=== PATIENT | male | born 1940 | race Caucasian/White ===

== ENCOUNTER 2019-03-24 09:57 | Outpatient (CLI) | payer OTHER ==
--- NOTE | 2019-03-24 10:23 | RAD ---
XR Chest Pa Lat STANDARD HISTORY: Occupational exposure to asbestos COMPARISON: 04/14/2018 FINDINGS: The heart size is normal. Changes of median sternotomy are again seen. The lungs are well e xpanded without focal areas of consolidation, pneumothorax or pleural effusions. No definite calcified pleural plaques are seen. IMPRESSION: No radiographic evidence of acute cardiopulmonary process.
== END 2019-03-24 09:58 | disposition home or self-care (01) ==
LOC: MADRAD 09:57
PROVIDERS: ATTEND Internal Medicine
DX: J61 Pneumoconiosis due to asbestos and other mineral fibers (principal)
CPT/HCPCS: 71046

== ENCOUNTER 2021-10-14 14:14 | Emergency (ER) | payer MEDICARE ==
[2021-10-14] MEDS ORDERED: Ipratropium Bromide 2.5 ml Neb ONE (15:41)
[2021-10-14] MEDS ORDERED: methylPREDNISolone Sod Succ/PF 125 MG/2 ML VIAL ONE (15:41)
[2021-10-14] MEDS ORDERED: Sodium Chloride 0.9% 250 ML 250 ML ONE (15:41)
[2021-10-14] MEDS ORDERED: Albuterol Sulfate 2.5 mg/0.5 ml Neb ONE (15:41)
[2021-10-14] MEDS ORDERED: Azithromycin 500 MG VIAL ONE (15:41)
[2021-10-14 15:55] LABS: ALT (SGPT) 11 U/L (8-55); AST (SGOT) 20 U/L (5-34); Albumin 3.7 g/dL (3.4-4.8); Alkaline Phosphatase 137 U/L (40-110); Anion Gap 17 mmol/L (10-20); BUN (Urea Nitrogen) 20 mg/dL (8.4-25.7); Bilirubin, Total 1.2 mg/dL (0.2-1.2); Calc. Creatinine Clearance 0 mL/min (70-130); Calcium 8.8 mg/dL (7.8-10.44); Carbon Dioxide 22 mmol/L (23-31); Chloride 112 mmol/L (98-107); Globulin 3.3 g/dL (2.4-3.5); Glucose 166 mg/dL (83-110); Potassium 4.3 mmol/L (3.5-5.1); Sodium 147 mmol/L (136-145)
[2021-10-14 15:58] LABS: #Basophils 0.1 thou/uL (0.0-0.2); #Eosinphils 0.3 thou/uL (0.0-0.7); #Lymphocytes 1.3 thou/uL (1.20-3.40); #Monocytes 0.6 thou/uL (0.11-0.59); #Neutrophils 5.3 thou/uL (1.40-6.50); %Basophils 0.8 % (0.0-1.0); %Eosinophils 3.4 % (0.0-10.0); %Lymphocytes 17.3 % (21.0-51.0); %Monocytes 7.7 % (0.0-10.0); %Neutrophils 70.8 % (42.0-75.0); Anisocytosis SLIGHT = 6-15 cells (100X) (0-5/hpf); Hemoglobin 11.2 g/dL (14.0-18.0); Hypochromia SLIGHT = 6-15 cells (100X) (0-5/hpf); MDiff Complete? YES; Mean Corpuscular HGB CONC 29.6 g/dL (32.0-36.0); Mean Corpuscular Hemoglobin 25.4 pg (27.0-31.0); Mean Corpuscular Volume 85.7 fL (78.0-98.0); Mean Platelet Volume 8.9 fL (7.4-10.4); Microcytosis SLIGHT = 6-15 cells (100X) (0-5/hpf); Ovalocytes SLIGHT = 2-5 cells (100X) (0-1/hpf); Platelet Count 240 thou/uL (130-400); Platelet Morphology Comment Appears Adequate; RBC Distribution Width 27.5 % (11.5-14.5); White Blood Cell (WBC) Count 7.5 thou/uL (4.8-10.8)
[2021-10-14] MEDS ORDERED: Albuterol 200 PUFF (6.7GM INHALER) ONE (17:38)
== END 2021-10-14 17:54 | disposition home or self-care (01) ==
LOC: MADERS 14:14
DX: J44.1 Chronic obstructive pulmonary disease with (acute) exacerbation (principal); I48.91 Unspecified atrial fibrillation; I50.9 Heart failure, unspecified; E78.5 Hyperlipidemia, unspecified; I11.0 Hypertensive heart disease with heart failure; K21.9 Gastro-esophageal reflux disease without esophagitis; J44.9 Chronic obstructive pulmonary disease, unspecified; E11.9 Type 2 diabetes mellitus without complications; Z87.891 Personal history of nicotine dependence
CPT/HCPCS: 71045; 80053; 83880; 84484; 85025; 96365; 96375; J0456; J2930; J7050; J7611; J7620

== ENCOUNTER 2022-02-25 14:55 | Inpatient (IN) | payer MEDICARE ==
[2022-02-25 17:23] VITALS: BMI 28.8
[2022-02-25] MEDS ORDERED: LEVOFLOXACIN 750 MG PO SCH (17:45)
[2022-02-25] MEDS ORDERED: Artificial Tear Sol 15 ML BOT EA EYE PRN (17:48)
[2022-02-25] MEDS ORDERED: Dextrose 5% in Water 1,000 ML IV PRN (18:30)
[2022-02-25] MEDS ORDERED: Dextrose 50% Abboject 50 ML SYRINGE IVP PRN (18:30)
[2022-02-25] MEDS: Glimepiride 2 MG TAB PO SCH (20:48)
[2022-02-25] MEDS: Mometasone/Formoterol 200/5 60 PUFF INH SCH (20:48)
[2022-02-25] MEDS: Simvastatin 5 MG TAB PO SCH (20:49)
[2022-02-26] MEDS: Levothyroxine Sodium 25 MCG TAB PO SCH (05:15)
[2022-02-26] MEDS ORDERED: Enoxaparin Sodium 40 MG/0.4 ML SYRINGE SC SCH (09:00)
[2022-02-26] MEDS: Mometasone/Formoterol 200/5 60 PUFF INH SCH ×2 (09:27→21:18)
[2022-02-26] MEDS: predniSONE 10 MG TAB PO SCH (09:28)
[2022-02-26] MEDS: Glimepiride 2 MG TAB PO SCH ×2 (09:28→21:16)
[2022-02-26] MEDS: Enoxaparin Sodium 30 MG/0.3 ML SYRINGE SC SCH (09:28)
[2022-02-26] MEDS: Aspirin 81 mg Enteric Coated Tablet PO SCH (09:29)
[2022-02-26] MEDS: Furosemide 40 MG TAB PO SCH (09:29)
[2022-02-26] MEDS: Cholecalciferol 1,000 UNITS (25 MCG) TAB PO SCH (09:29)
[2022-02-26] MEDS: Simvastatin 5 MG TAB PO SCH (21:18)
[2022-02-26] MEDS: HumaLOG 300 UNITS/3 ML VIAL SC PRN (21:20)
[2022-02-27 05:56] LABS: #Lymphocytes 0.9 thou/uL (1.20-3.40); #Monocytes 0.8 thou/uL (0.11-0.59); #Neutrophils 7.9 thou/uL (1.40-6.50); %Basophils 0.2 % (0.0-1.0); %Neutrophils 82.8 % (42.0-75.0); Anisocytosis SLIGHT = 6-15 cells (100X) (0-5/hpf); Hemoglobin 10.7 g/dL (14.0-18.0); MDiff Complete? YES; Mean Corpuscular HGB CONC 30.6 g/dL (32.0-36.0); Mean Corpuscular Hemoglobin 24.3 pg (27.0-31.0); Mean Corpuscular Volume 79.5 fL (78.0-98.0); Mean Platelet Volume 7.6 fL (7.4-10.4); Ovalocytes SLIGHT = 2-5 cells (100X) (0-1/hpf); Platelet Count 248 thou/uL (130-400); Platelet Morphology Comment Appears Adequate; RBC Distribution Width 15.7 % (11.5-14.5); White Blood Cell (WBC) Count 9.6 thou/uL (4.8-10.8)
[2022-02-27 06:06] LABS: ALT (SGPT) 17 U/L (8-55); AST (SGOT) 21 U/L (5-34); Albumin 3.7 g/dL (3.4-4.8); Alkaline Phosphatase 97 U/L (40-110); Anion Gap 17 mmol/L (10-20); BUN (Urea Nitrogen) 52 mg/dL (8.4-25.7); Bilirubin, Total 1.1 mg/dL (0.2-1.2); Calc. Creatinine Clearance 35 mL/min (70-130); Calcium 8.9 mg/dL (7.8-10.44); Carbon Dioxide 25 mmol/L (23-31); Chloride 104 mmol/L (98-107); Estimated GFR 37; Globulin 3.3 g/dL (2.4-3.5); Glucose 141 mg/dL (83-110); Potassium 3.9 mmol/L (3.5-5.1); Sodium 142 mmol/L (136-145)
[2022-02-27] MEDS: Levothyroxine Sodium 25 MCG TAB PO SCH (06:09)
[2022-02-27] MEDS: Mometasone/Formoterol 200/5 60 PUFF INH SCH ×2 (08:37→20:38)
[2022-02-27] MEDS: Cholecalciferol 1,000 UNITS (25 MCG) TAB PO SCH (08:39)
[2022-02-27] MEDS: Aspirin 81 mg Enteric Coated Tablet PO SCH (08:39)
[2022-02-27] MEDS: predniSONE 10 MG TAB PO SCH (08:39)
[2022-02-27] MEDS: Glimepiride 2 MG TAB PO SCH ×2 (08:41→20:34)
[2022-02-27] MEDS: Enoxaparin Sodium 30 MG/0.3 ML SYRINGE SC SCH (08:44)
[2022-02-27] MEDS: Furosemide 40 MG TAB PO SCH (08:44)
[2022-02-27] MEDS: HumaLOG 300 UNITS/3 ML VIAL SC PRN (17:52)
[2022-02-27] MEDS: Simvastatin 5 MG TAB PO SCH (20:34)
[2022-02-28] MEDS: Levothyroxine Sodium 25 MCG TAB PO SCH (05:16)
[2022-02-28] MEDS: Cholecalciferol 1,000 UNITS (25 MCG) TAB PO SCH (08:35)
[2022-02-28] MEDS: Glimepiride 2 MG TAB PO SCH (08:35)
[2022-02-28] MEDS: predniSONE 10 MG TAB PO SCH (08:35)
[2022-02-28] MEDS: Enoxaparin Sodium 30 MG/0.3 ML SYRINGE SC SCH (08:35)
[2022-02-28] MEDS: Furosemide 40 MG TAB PO SCH (08:36)
[2022-02-28] MEDS: Aspirin 81 mg Enteric Coated Tablet PO SCH (08:36)
[2022-02-28] MEDS: Mometasone/Formoterol 200/5 60 PUFF INH SCH ×2 (08:37→20:28)
[2022-02-28] MEDS: HumaLOG 300 UNITS/3 ML VIAL SC PRN ×2 (18:26→22:18)
[2022-02-28] MEDS: Hydrocortisone Acetate 25 MG Suppository PR PRN (20:25)
[2022-02-28] MEDS: Simvastatin 5 MG TAB PO SCH (20:27)
[2022-03-01] MEDS: Levothyroxine Sodium 25 MCG TAB PO SCH (05:32)
[2022-03-01] MEDS: predniSONE 10 MG TAB PO SCH (08:02)
[2022-03-01] MEDS: Aspirin 81 mg Enteric Coated Tablet PO SCH (08:03)
[2022-03-01] MEDS: Furosemide 40 MG TAB PO SCH (08:03)
[2022-03-01] MEDS: Glimepiride 2 MG TAB PO SCH (08:04)
[2022-03-01] MEDS: Mometasone/Formoterol 200/5 60 PUFF INH SCH ×2 (08:04→20:03)
[2022-03-01] MEDS: Enoxaparin Sodium 30 MG/0.3 ML SYRINGE SC SCH (08:04)
[2022-03-01] MEDS: Cholecalciferol 1,000 UNITS (25 MCG) TAB PO SCH (08:04)
[2022-03-01] MEDS: Simvastatin 5 MG TAB PO SCH (20:02)
[2022-03-01] MEDS: Hydrocortisone Acetate 25 MG Suppository PR PRN (20:18)
[2022-03-01] MEDS: HumaLOG 300 UNITS/3 ML VIAL SC PRN (21:55)
[2022-03-02] MEDS: Levothyroxine Sodium 25 MCG TAB PO SCH (05:50)
[2022-03-02] MEDS: Aspirin 81 mg Enteric Coated Tablet PO SCH (08:44)
[2022-03-02] MEDS: predniSONE 10 MG TAB PO SCH (08:45)
[2022-03-02] MEDS: Furosemide 40 MG TAB PO SCH (08:45)
[2022-03-02] MEDS: Glimepiride 2 MG TAB PO SCH (08:45)
[2022-03-02] MEDS: Cholecalciferol 1,000 UNITS (25 MCG) TAB PO SCH (08:45)
[2022-03-02] MEDS: Enoxaparin Sodium 30 MG/0.3 ML SYRINGE SC SCH (08:46)
[2022-03-02] MEDS: Mometasone/Formoterol 200/5 60 PUFF INH SCH ×2 (08:48→20:17)
[2022-03-02] MEDS: HumaLOG 300 UNITS/3 ML VIAL SC PRN ×2 (17:12→21:59)
[2022-03-02] MEDS: Simvastatin 5 MG TAB PO SCH (20:16)
[2022-03-02] MEDS: Hydrocortisone Acetate 25 MG Suppository PR PRN (20:17)
[2022-03-03] MEDS: Levothyroxine Sodium 25 MCG TAB PO SCH (04:43)
[2022-03-03 07:04] VITALS: BP 120/72; TEMP 98.3
[2022-03-03] MEDS: Cholecalciferol 1,000 UNITS (25 MCG) TAB PO SCH (08:48)
[2022-03-03] MEDS: Enoxaparin Sodium 30 MG/0.3 ML SYRINGE SC SCH (08:49)
[2022-03-03] MEDS: Aspirin 81 mg Enteric Coated Tablet PO SCH (08:49)
[2022-03-03] MEDS: Furosemide 40 MG TAB PO SCH (08:49)
[2022-03-03] MEDS: Glimepiride 2 MG TAB PO SCH (08:49)
[2022-03-03] MEDS: Mometasone/Formoterol 200/5 60 PUFF INH SCH (08:50)
== END 2022-03-03 16:38 | disposition home health service (06) | DRG 948 ==
LOC: MADMS 17:13
PROVIDERS: ADMIT Family Medicine; ATTEND Family Medicine
DX: R53.81 Other malaise (principal); I50.32 Chronic diastolic (congestive) heart failure; I48.19 Other persistent atrial fibrillation; I13.0 Hypertensive heart and chronic kidney disease with heart failure and stage 1 through stage 4 chronic kidney disease, or unspecified chronic kidney disease; N17.9 Acute kidney failure, unspecified; E03.9 Hypothyroidism, unspecified; E11.22 Type 2 diabetes mellitus with diabetic chronic kidney disease; J44.9 Chronic obstructive pulmonary disease, unspecified; R26.81 Unsteadiness on feet; Z20.822 Contact with and (suspected) exposure to COVID-19; N18.31 Chronic kidney disease, stage 3a; E11.65 Type 2 diabetes mellitus with hyperglycemia; E11.649 Type 2 diabetes mellitus with hypoglycemia without coma; Z98.41 Cataract extraction status, right eye; Z79.82 Long term (current) use of aspirin; Z79.899 Other long term (current) drug therapy; Z88.8 Allergy status to other drugs, medicaments and biological substances; Z95.5 Presence of coronary angioplasty implant and graft; Z87.891 Personal history of nicotine dependence; Z79.51 Long term (current) use of inhaled steroids
CPT/HCPCS: 36415; 36416; 80053; 85025; 94664; J1650; J1815; J7512; U0003; U0005

== ENCOUNTER 2022-03-30 11:20 | Emergency (ER) | payer MEDICARE ==
[2022-03-30] MEDS ORDERED: Sodium Chloride 0.9% 1,000 ML ONE (13:11)
[2022-03-30 13:18] LABS: Bilirubin Negative (Negative); Blood, Urine Negative (Negative); Glucose, Urine (Dipstick) Negative (Negative); Ketone, Urine Negative (Negative); Leukocyte Negative (Negative); Nitrite Negative (Negative); Protein, Urine (Dipstick) 30 mg/dL (Neg-Trace)
[2022-03-30 13:25] LABS: Bacteria/HPF Rare-Few HPF (None Seen); Clarity Hazy (Clear); RBC/HPF 0-3 HPF (0-3); Squamous Epithelial 0-3 HPF (0-3); WBC/HPF 0-3 HPF (0-3)
[2022-03-30 13:29] LABS: ALT (SGPT) 11 U/L (8-55); AST (SGOT) 16 U/L (5-34); Albumin 3.5 g/dL (3.4-4.8); Alkaline Phosphatase 120 U/L (40-110); Anion Gap 15 mmol/L (10-20); Anisocytosis SLIGHT = 6-15 cells (100X) (0-5/hpf); BUN (Urea Nitrogen) 18 mg/dL (8.4-25.7); Bilirubin, Total 0.7 mg/dL (0.2-1.2); CK (CPK) 20 U/L (30-200); Calc. Creatinine Clearance 0 mL/min (70-130); Calcium 8.9 mg/dL (7.8-10.44); Carbon Dioxide 24 mmol/L (23-31); Chloride 106 mmol/L (98-107); Estimated GFR 53; Globulin 3.6 g/dL (2.4-3.5); Glucose 157 mg/dL (83-110); Hypochromia SLIGHT = 6-15 cells (100X) (0-5/hpf); MDiff Complete? YES; Magnesium 1.8 mg/dL (1.6-2.6); Ovalocytes SLIGHT = 2-5 cells (100X) (0-1/hpf); Platelet Morphology Comment Appears Adequate; Potassium 4.4 mmol/L (3.5-5.1); Protein, Total 7.1 g/dL (5.8-8.1); Sodium 141 mmol/L (136-145)
[2022-03-30 13:30] LABS: #Basophils 0.1 thou/uL (0.0-0.2); #Eosinphils 0.2 thou/uL (0.0-0.7); #Lymphocytes 1.3 thou/uL (1.20-3.40); #Monocytes 0.7 thou/uL (0.11-0.59); #Neutrophils 6.1 thou/uL (1.40-6.50); %Basophils 1.1 % (0.0-1.0); %Lymphocytes 15.5 % (21.0-51.0); %Neutrophils 73.5 % (42.0-75.0); Hemoglobin 9.9 g/dL (14.0-18.0); Mean Corpuscular HGB CONC 30.3 g/dL (32.0-36.0); Mean Corpuscular Hemoglobin 24.3 pg (27.0-31.0); Mean Corpuscular Volume 80.2 fl (78.0-98.0); Mean Platelet Volume 6.3 fL (7.4-10.4); Platelet Count 392 thou/uL (130-400); RBC Distribution Width 17.7 % (11.5-14.5); Red Blood Cell (RBC) Count 4.07 mill/uL (4.70-6.10); White Blood Cell (WBC) Count 8.3 thou/uL (4.8-10.8)
[2022-03-30 13:31] LABS: CKMB 0.8 ng/mL (0-6.6)
== END 2022-03-30 15:35 | disposition home or self-care (01) ==
LOC: MADERS 11:20
DX: R41.0 Disorientation, unspecified (principal); I11.0 Hypertensive heart disease with heart failure; I50.9 Heart failure, unspecified; K21.9 Gastro-esophageal reflux disease without esophagitis; E03.9 Hypothyroidism, unspecified; E11.9 Type 2 diabetes mellitus without complications; J44.9 Chronic obstructive pulmonary disease, unspecified; Z87.891 Personal history of nicotine dependence
CPT/HCPCS: 36415; 70450; 71045; 80053; 81003; 81015; 82550; 82553; 83605; 83735; 83880; 84443; 84484; 85025; 87040; 93005; 96360; 96361; J7050